=== PATIENT | female | born 1925 | race Caucasian/White ===

== ENCOUNTER → 2017-07-03 | Outpatient (CLI) | payer OTHER ==
[~2017-07-03] MED LIST: ADULT LOW DOSE81 MG PO; ATENOLOL 50 MG50 M1 PO; AZOR 5-40 MG T1 EACH PO; CALCIUM 500+D1 EAC3 PO; FOSAMAX 70 MG T70 MG PO; HYDROCHLOROTH12.5 MG PO; MULTIPLE VITAM1 EAC3 PO
== END ==
LOC: RAD 11:18
DX: Z12.31 Encounter for screening mammogram for malignant neoplasm of breast (principal)

== ENCOUNTER → 2017-07-14 | Outpatient (CLI) | payer OTHER | LOC: ULTRA 09:32 | DX: N63.41 Unspecified lump in right breast, subareolar (principal) ==